=== PATIENT | female | born 1995 | race Hispanic/Latino ===

== ENCOUNTER → 2020-07-02 08:12 | Outpatient (CLI) | payer BC, SELFPAY | LOC: SL 08:16 | PROVIDERS: PCP Otolaryngology; Visit Provider Otolaryngology | DX: G47.33 Obstructive sleep apnea (adult) (pediatric) (principal) | CPT/HCPCS: 95806 ==

== ENCOUNTER → 2020-07-23 16:17 | Outpatient (CLI) | payer BC, SELFPAY ==
[2020-07-16 11:35] VITALS: BMI 25.2
== END ==
PROVIDERS: PCP Otolaryngology; Visit Provider Nurse Practitioner Acute Care
DX: G47.33 Obstructive sleep apnea (adult) (pediatric) (principal)